=== PATIENT | female | born 1965 | race Caucasian/White ===

== ENCOUNTER 2021-10-25 19:34 | Inpatient (IN) ==
[2021-10-25 20:58] LABS: Bilirubin,Urine Negative (Negative); Blood,Urine Moderate (Negative); Clarity,Urine Ex.Turbid (Clear); Color,Urine Yellow (Yellow); Glucose,Urine (UA) Normal (Normal); Ketones,Urine 10 mg/dL (Negative); Leukocyte Esterase,Urine Moderate (Negative); Mucus,Urine Many per lpf (None-Few); Nitrite,Urine Positive (Negative); Protein,Urine >=600 mg/dL (Neg-Trace); Specific Gravity,Urine > 1.030 (1.010-1.025); Squamous Epithelial Cell,Urine Moderate per hpf (None-Few); WBC,Urine 30-50 per hpf (0-3)
[2021-10-25 21:04] LABS: Amphetamine Screen,Urine Negative ng/mL (Cutoff=1000); Barbiturate Screen,Urine Negative ng/mL (Cutoff=200); Benzodiazepines Screen,Urine Negative ng/mL (Cutoff=200); Cannabinoid Screen,Urine Positive ng/mL (Cutoff = 50); Cocaine Screen,Urine Negative ng/mL (Cutoff= 300); Opiate Screen,Urine Negative ng/mL (Cutoff=300); Phencyclidine Screen,Urine Negative ng/mL (Cutoff=25)
[2021-10-25] MEDS ORDERED: Haloperidol Lactate 5 MG/ML VIAL IM ONE (23:16)
[2021-10-25] MEDS ORDERED: *HR* LORazepam 2 MG/ML VIAL IVP ONE (23:43)
[2021-10-25] MEDS ORDERED: cefTRIAXone 1,000 MG in 0.9 % Sodium Chloride 10 ML IVP ONE (23:44)
[2021-10-26] MEDS ORDERED: *HR* LORazepam 2 MG/ML VIAL IM ONE (00:53)
[2021-10-26 01:16] LABS: Basophils # 0.1 K/mcL (0.0-0.2); Basophils % 0.4 %; Eosinophils % 0.3 %; Hematocrit 40.8 % (35.3-44.9); Hemoglobin 13.7 g/dL (11.5-15.4); Immature Granulocytes % 0.3 % (0-4); Lymphocytes # 3.6 K/mcL (0.6-4.6); Lymphocytes % 25.1 %; Mean Corpuscular HGB Conc 33.6 g/dL (31.6-35.5); Mean Corpuscular Hemoglobin 30.6 pg (28.0-33.3); Mean Corpuscular Volume 91.3 fL (83.0-100.0); Mean Platelet Volume 10.4 fL (9.4-12.4); Monocytes # 1.1 K/mcL (0.0-1.3); Monocytes % 7.5 %; Neutrophils # 9.4 K/mcL (1.6-8.9); Platelet Count 299 K/mcL (140-400); Red Blood Count 4.47 M/mcL (3.82-4.97); Red Cell Distribution Width 12.2 % (11.5-14.5); Segmented Neutrophils % 66.4 %; White Blood Count 14.2 K/mcL (4.3-11.1)
[2021-10-26 01:36] LABS: Albumin 4.5 g/dL (3.5-5.7); Albumin/Globulin Ratio 1.5 (1.1-2.2); Bilirubin,Direct 0.1 mg/dL (0.0-0.2); Bilirubin,Indirect 0.4 mg/dL (0.0-1.0); Bilirubin,Total 0.5 mg/dL (0.3-1.0); Calcium 9.2 mg/dL (8.6-10.3); Potassium 2.7 mEq/L (3.5-5.1); Total Protein 7.5 g/dL (6.4-8.9)
[2021-10-26] MEDS ORDERED: Potassium Phosphate 44 MEQ in 0.9 % Sodium Chloride 250 ML IVPB ONE (02:48)
[2021-10-26] MEDS ORDERED: POTASSIUM CHLORIDE IN 0.9%NACL 40 MEQ/1,000 ML IV.SOLN IV ONE (02:51)
[2021-10-26 02:52] LABS: Thyroid Stimulating Hormone 1.903 mcIU/mL (0.340-5.600)
[2021-10-26] MEDS ORDERED: Melatonin 3 MG TABLET PO PRN (04:02)
[2021-10-26] MEDS ORDERED: Naloxone 0.4 MG/ML INJ IVP PRN (04:02)
[2021-10-26] MEDS ORDERED: Ondansetron ODT 4 MG TAB.RAPDIS SL PRN (04:02)
[2021-10-26] MEDS ORDERED: *HR* Heparin 5,000 UNIT/ML VIAL SQ SCH (06:00)
[2021-10-26] MEDS ORDERED: Potassium Chloride Elixir 20 MEQ/15 ML UDC PO ONE (08:00)
[2021-10-26] MEDS: Nicotine 14 MG PATCH.TD24 TD SCH (09:53)
[2021-10-26] MEDS ORDERED: cefTRIAXone 1,000 MG in 0.9 % Sodium Chloride Mini Bag 100 ML IVPB SCH (12:00)
[2021-10-26 12:13] LABS: Potassium 3.8 mEq/L (3.5-5.1)
[2021-10-26] MEDS: cefTRIAXone 1,000 MG in 0.9 % Sodium Chloride 10 ML IVP SCH (16:54)
[2021-10-26] MEDS: Haloperidol Lactate 5 MG/ML VIAL IVP PRN (16:59)
[2021-10-26] MEDS ORDERED: *HR* Metoprolol 5 MG/5 ML VIAL IVP ONE (22:55)
[2021-10-27 03:27] LABS: Basophils % 0.5 %; Eosinophils # 0.1 K/mcL (0.0-0.6); Eosinophils % 1.2 %; Hematocrit 40.2 % (35.3-44.9); Hemoglobin 13.5 g/dL (11.5-15.4); Immature Granulocytes % 0.3 % (0-4); Lymphocytes # 1.5 K/mcL (0.6-4.6); Lymphocytes % 22.6 %; Mean Corpuscular HGB Conc 33.6 g/dL (31.6-35.5); Mean Corpuscular Volume 92.4 fL (83.0-100.0); Mean Platelet Volume 10.8 fL (9.4-12.4); Monocytes # 0.9 K/mcL (0.0-1.3); Monocytes % 13.8 %; Neutrophils # 3.9 K/mcL (1.6-8.9); Platelet Count 249 K/mcL (140-400); Red Blood Count 4.35 M/mcL (3.82-4.97); Red Cell Distribution Width 11.9 % (11.5-14.5); Segmented Neutrophils % 61.6 %; White Blood Count 6.4 K/mcL (4.3-11.1)
[2021-10-27 03:52] LABS: Calcium 8.7 mg/dL (8.6-10.3); Magnesium 1.9 mg/dL (1.6-2.6); Potassium 3.5 mEq/L (3.5-5.1)
[2021-10-27] MEDS ORDERED: Ipratropium/Albuterol Neb 3 ML IH PRN (07:21)
[2021-10-27] MEDS: Cholecalciferol (D-3) 1,000 UNIT (25MCG) TABLET PO SCH (10:03)
[2021-10-27] MEDS: Gabapentin 400 MG CAPSULE PO SCH ×4 (10:03→19:47)
[2021-10-27] MEDS: Nicotine 14 MG PATCH.TD24 TD SCH (10:04)
[2021-10-27 10:42] LABS: Hepatitis B Surface Antigen Nonreactive (Nonreactive)
[2021-10-27 11:11] LABS: HIV-1&2 Antibody & p24 Ag Nonreactive (Nonreactive)
[2021-10-27 11:13] LABS: Hepatitis A Antibody IgM Nonreactive (Nonreactive)
[2021-10-27] MEDS: cefTRIAXone 1,000 MG in 0.9 % Sodium Chloride 10 ML IVP SCH (14:33)
[2021-10-27] MEDS: Haloperidol Lactate 5 MG/ML VIAL IVP PRN (15:44)
[2021-10-28 02:25] LABS: Basophils % 0.6 %; Eosinophils % 0.6 %; Hematocrit 41.1 % (35.3-44.9); Hemoglobin 13.5 g/dL (11.5-15.4); Immature Granulocytes % 0.5 % (0-4); Lymphocytes # 2.2 K/mcL (0.6-4.6); Mean Corpuscular HGB Conc 32.8 g/dL (31.6-35.5); Mean Corpuscular Hemoglobin 30.3 pg (28.0-33.3); Mean Corpuscular Volume 92.2 fL (83.0-100.0); Mean Platelet Volume 10.8 fL (9.4-12.4); Monocytes # 0.8 K/mcL (0.0-1.3); Monocytes % 13.4 %; Neutrophils # 3.1 K/mcL (1.6-8.9); Platelet Count 248 K/mcL (140-400); Red Blood Count 4.46 M/mcL (3.82-4.97); Red Cell Distribution Width 12.1 % (11.5-14.5); Segmented Neutrophils % 49.9 %; White Blood Count 6.3 K/mcL (4.3-11.1)
[2021-10-28 02:43] LABS: Calcium 8.8 mg/dL (8.6-10.3); Magnesium 1.9 mg/dL (1.6-2.6); Potassium 3.3 mEq/L (3.5-5.1)
[2021-10-28] MEDS: Nicotine 14 MG PATCH.TD24 TD SCH (07:53)
[2021-10-28] MEDS: *HR* Enoxaparin 40 MG/0.4 ML SYRINGE SQ SCH (07:54)
[2021-10-28] MEDS: Gabapentin 400 MG CAPSULE PO SCH ×4 (07:54→22:14)
[2021-10-28] MEDS: Cholecalciferol (D-3) 1,000 UNIT (25MCG) TABLET PO SCH (07:55)
[2021-10-28] MEDS: *HR* LORazepam 1 MG TABLET PO SCH (22:13)
[2021-10-29 01:33] LABS: Hematocrit 40.8 % (35.3-44.9); Hemoglobin 13.3 g/dL (11.5-15.4); Mean Corpuscular HGB Conc 32.6 g/dL (31.6-35.5); Mean Corpuscular Hemoglobin 30.5 pg (28.0-33.3); Mean Corpuscular Volume 93.6 fL (83.0-100.0); Mean Platelet Volume 10.6 fL (9.4-12.4); Platelet Count 240 K/mcL (140-400); Red Blood Count 4.36 M/mcL (3.82-4.97); Red Cell Distribution Width 11.9 % (11.5-14.5); Segmented Neutrophils % 50.7 %; White Blood Count 5.8 K/mcL (4.3-11.1)
[2021-10-29 01:34] LABS: Basophils % 0.3 %; Eosinophils # 0.1 K/mcL (0.0-0.6); Eosinophils % 1.4 %; Immature Granulocytes % 0.2 % (0-4); Lymphocytes # 2.2 K/mcL (0.6-4.6); Lymphocytes % 37.5 %; Monocytes # 0.6 K/mcL (0.0-1.3); Monocytes % 9.9 %
[2021-10-29 01:51] LABS: BUN/Creatinine Ratio 28 (6-26); Blood Urea Nitrogen 22 mg/dL (6-20); Calcium 8.6 mg/dL (8.6-10.3); Carbon Dioxide 25 mEq/L (23-29); Chloride 107 mEq/L (98-107); Glucose 91 mg/dL (70-105); Magnesium 1.9 mg/dL (1.6-2.6); Osmolality,Calculated 293 (280-300); Potassium 3.4 mEq/L (3.5-5.1); Sodium 140 mEq/L (136-145)
[2021-10-29] MEDS ORDERED: *HR* Metoprolol 5 MG/5 ML VIAL IVP ONE (03:46)
[2021-10-29] MEDS: Nicotine 14 MG PATCH.TD24 TD SCH (08:16)
[2021-10-29] MEDS: *HR* Enoxaparin 40 MG/0.4 ML SYRINGE SQ SCH (08:17)
[2021-10-29] MEDS: Cholecalciferol (D-3) 1,000 UNIT (25MCG) TABLET PO SCH (08:17)
[2021-10-29] MEDS: *HR* LORazepam 1 MG TABLET PO SCH ×3 (08:18→21:29)
[2021-10-29] MEDS: Gabapentin 400 MG CAPSULE PO SCH ×4 (08:18→21:28)
[2021-10-29] MEDS ORDERED: levoFLOXacin 750 MG TABLET PO SCH (09:00)
[2021-10-29 10:25] LABS: HSV 1 Glycoprotein G IgG >62.20 IV (<=0.89); HSV 2 Glycoprotein G IgG 0.09 IV (<=0.89)
[2021-10-29] MEDS: OLANZapine 5 MG TAB.RAPDIS PO SCH (13:43)
[2021-10-29 14:44] LABS: Influenza A PCR Negative (Negative); Influenza B PCR Negative (Negative); Resp. Syncytial Virus PCR Negative (Negative)
[2021-10-29 14:45] LABS: SARS-CoV-2 by PCR (In House) Positive (Negative)
[2021-10-29] MEDS: valACYclovir 500 MG TABLET PO SCH (21:31)
[2021-10-30 03:25] LABS: Basophils # 0.1 K/mcL (0.0-0.2); Basophils % 0.6 %; Eosinophils # 0.2 K/mcL (0.0-0.6); Eosinophils % 2.7 %; Hematocrit 43.2 % (35.3-44.9); Hemoglobin 14.3 g/dL (11.5-15.4); Immature Granulocytes % 0.2 % (0-4); Lymphocytes # 3.7 K/mcL (0.6-4.6); Lymphocytes % 40.8 %; Mean Corpuscular HGB Conc 33.1 g/dL (31.6-35.5); Mean Corpuscular Hemoglobin 30.6 pg (28.0-33.3); Mean Corpuscular Volume 92.5 fL (83.0-100.0); Mean Platelet Volume 10.9 fL (9.4-12.4); Monocytes # 0.7 K/mcL (0.0-1.3); Monocytes % 7.9 %; Neutrophils # 4.3 K/mcL (1.6-8.9); Platelet Count 285 K/mcL (140-400); Red Blood Count 4.67 M/mcL (3.82-4.97); Segmented Neutrophils % 47.8 %
[2021-10-30 03:45] LABS: Calcium 8.8 mg/dL (8.6-10.3); Potassium 3.8 mEq/L (3.5-5.1)
[2021-10-30] MEDS: *HR* LORazepam 1 MG TABLET PO SCH ×3 (08:13→20:40)
[2021-10-30] MEDS: OLANZapine 5 MG TAB.RAPDIS PO SCH (08:13)
[2021-10-30] MEDS: Cholecalciferol (D-3) 1,000 UNIT (25MCG) TABLET PO SCH (08:14)
[2021-10-30] MEDS: valACYclovir 500 MG TABLET PO SCH ×2 (08:14→20:39)
[2021-10-30] MEDS: Gabapentin 400 MG CAPSULE PO SCH ×4 (08:14→20:39)
[2021-10-30] MEDS: Nicotine 14 MG PATCH.TD24 TD SCH (08:14)
[2021-10-30] MEDS: *HR* Enoxaparin 40 MG/0.4 ML SYRINGE SQ SCH (08:15)
[2021-10-30 14:38] LABS: HCV Quant Log NOT DETECTED log IU/mL
[2021-10-30 15:02] LABS: HCV Quant Interpretation NOT DETECTED (Not Detected)
[2021-10-30] MEDS: *HR* Heparin 5,000 UNIT/ML VIAL SQ SCH (16:56)
[2021-10-31] MEDS: *HR* Heparin 5,000 UNIT/ML VIAL SQ SCH ×2 (05:25→16:58)
[2021-10-31] MEDS: Gabapentin 400 MG CAPSULE PO SCH ×4 (07:48→20:11)
[2021-10-31] MEDS: *HR* Enoxaparin 40 MG/0.4 ML SYRINGE SQ SCH (07:48)
[2021-10-31] MEDS: valACYclovir 500 MG TABLET PO SCH ×2 (07:49→20:10)
[2021-10-31] MEDS: OLANZapine 5 MG TAB.RAPDIS PO SCH (07:49)
[2021-10-31] MEDS: *HR* LORazepam 1 MG TABLET PO SCH ×3 (07:49→20:10)
[2021-10-31] MEDS: Cholecalciferol (D-3) 1,000 UNIT (25MCG) TABLET PO SCH (07:49)
[2021-10-31] MEDS: Nicotine 14 MG PATCH.TD24 TD SCH (07:50)
[2021-10-31] MEDS ORDERED: Acetaminophen 325 MG TABLET PO ONE (13:57)
[2021-11-01] MEDS: Haloperidol Lactate 5 MG/ML VIAL IVP PRN (00:12)
[2021-11-01] MEDS: *HR* Heparin 5,000 UNIT/ML VIAL SQ SCH ×2 (06:31→16:59)
[2021-11-01] MEDS: Cholecalciferol (D-3) 1,000 UNIT (25MCG) TABLET PO SCH (09:01)
[2021-11-01] MEDS: OLANZapine 5 MG TAB.RAPDIS PO SCH (09:02)
[2021-11-01] MEDS: Nicotine 14 MG PATCH.TD24 TD SCH (09:02)
[2021-11-01] MEDS: *HR* LORazepam 1 MG TABLET PO SCH ×3 (09:02→19:45)
[2021-11-01] MEDS: Gabapentin 400 MG CAPSULE PO SCH ×4 (09:02→19:45)
[2021-11-01] MEDS: valACYclovir 500 MG TABLET PO SCH ×2 (09:04→19:44)
[2021-11-01 12:07] LABS: Adenovirus F 40/41 PCR Not detected (Not detect); Astrovirus PCR Not detected (Not detect); C.difficile Toxin A/B Gene PCR Not detected (Not detect); Campylobacter by PCR Not detected (Not detect); Cryptosporidium by PCR Not detected (Not detect); Cyclospora cayetanensis PCR Not detected (Not detect); E. coli O157 by PCR Not detected (Not detect); Entamoeba histolytica PCR Not detected (Not detect); Enteroaggregative E.coli(EAEC) Not detected (Not detect); Enteropathogenic E.coli(EPEC) Not detected (Not detect); Enterotoxigenic E.coli (ETEC) Not detected (Not detect); Giardia lamblia PCR Not detected (Not detect); Norovirus GI/GII PCR Not detected (Not detect); Plesiomonas shigelloides PCR Not detected (Not detect); Rotavirus A PCR Not detected (Not detect); Salmonella PCR Not detected (Not detect); Sapovirus PCR Not detected (Not detect); Shig/EnteroinvasiveE coli EIEC Not detected (Not detect); Shigalike tox-prod E coli STEC Not detected (Not detect); Vibrio PCR Not detected (Not detect); Vibrio cholerae PCR Not detected (Not detect); Yersinia enterocolitica PCR Not detected (Not detect)
[2021-11-02] MEDS: traZODone 50 MG TABLET PO PRN ×2 (00:12→21:43)
[2021-11-02] MEDS: *HR* Heparin 5,000 UNIT/ML VIAL SQ SCH ×2 (05:34→17:28)
[2021-11-02] MEDS: Nicotine 14 MG PATCH.TD24 TD SCH (09:02)
[2021-11-02] MEDS: Cholecalciferol (D-3) 1,000 UNIT (25MCG) TABLET PO SCH (09:03)
[2021-11-02] MEDS: *HR* LORazepam 1 MG TABLET PO SCH ×3 (09:03→21:39)
[2021-11-02] MEDS: OLANZapine 5 MG TAB.RAPDIS PO SCH (09:03)
[2021-11-02] MEDS: valACYclovir 500 MG TABLET PO SCH ×2 (09:03→21:39)
[2021-11-02] MEDS: Gabapentin 400 MG CAPSULE PO SCH ×4 (09:03→21:39)
[2021-11-03] MEDS: *HR* Heparin 5,000 UNIT/ML VIAL SQ SCH (06:14)
[2021-11-03 07:10] VITALS: BP 116/77; PULSE 92; TEMP 98.5; O2SAT 95
[2021-11-03] MEDS: OLANZapine 5 MG TAB.RAPDIS PO SCH (08:19)
[2021-11-03] MEDS: valACYclovir 500 MG TABLET PO SCH (08:19)
[2021-11-03] MEDS: Gabapentin 400 MG CAPSULE PO SCH (08:19)
[2021-11-03] MEDS: *HR* LORazepam 1 MG TABLET PO SCH (08:20)
[2021-11-03] MEDS: Nicotine 14 MG PATCH.TD24 TD SCH (08:20)
[2021-11-03] MEDS: Cholecalciferol (D-3) 1,000 UNIT (25MCG) TABLET PO SCH (08:20)
== END 2021-11-03 08:58 | DRG 720 ==
LOC: 3BNU 19:34 → EMEROOARM 19:34 → SUATTDRO 10-26 13:17 → 3BNU 10-26 14:33 → SUATTDRO 10-28 18:03 → 3BNU 10-29 14:46
PROVIDERS: ADMIT Internal Medicine; ATTEND Registered Nurse